=== PATIENT | male | born 1955 | race Caucasian/White ===

== ENCOUNTER 2017-06-12 12:17 | Emergency (ER) | payer OTHER ==
[~2017-06-12] VITALS: Ht 185.4 cm; Wt 103.2 kg
[~2017-06-12 12:17] MED LIST: ASPI-621 PO; ATOR-2 PO; ATOR40TA78 PO; CLOP75TA52 PO; HYDR-3240 PO; INSU100C5 SQ-INSULIN; INSU100V8 SQ; LIRA0.6P SC; LIRA0.6P SQ; LISI-167 PO; MELO15TA24 PO; METF10002 PO; METO25TA35 PO; RANI300C PO; TICA90TA PO; VICTOZA; [UNRECOGNIZED DRUG - OTHER]
[2017-06-12] MEDS ORDERED: SODIUM CHLORIDE 0.9% 1,000ML IVBOLUS ONE (13:00)
[2017-06-12] MEDS ORDERED: SODIUM CHLORIDE FLUSH 10ML SYR IVF ONE (13:00)
[2017-06-12] MEDS ORDERED: ONDANSETRON 2MG/ML, 2ML IVPush ONE ×2 (13:00→17:00)
[2017-06-12] MEDS ORDERED: ONDANSETRON 2MG/ML, 2ML ONE (13:03)
[2017-06-12 13:44] LABS: HEMOGLOBIN 17.7 g/dL (13.7-18.0); WHITE BLOOD COUNT 10.1 x10^3/uL (3.4-10)
[2017-06-12 13:57] LABS: ASPARTATE AMINO TRANSFERASE 15 U/L (15-37); BLOOD UREA NITROGEN 22 mg/dL (7-18)
[2017-06-12 14:02] LABS: IS PT STATUS REG ER OR PRE ER? YES
[2017-06-12] MEDS ORDERED: OMNIPAQUE 350 MG/ML, 100ML BOTTLE ONE (15:23)
[2017-06-12 16:28] VITALS: BP 126/90
== END 2017-06-12 17:51 | disposition home or self-care (01) ==
LOC: ED 14:35
DX: E86.0 Dehydration (principal); R10.13 Epigastric pain; R63.0 Anorexia; E11.9 Type 2 diabetes mellitus without complications; I10 Essential (primary) hypertension
CPT/HCPCS: 36415; 74177; 80053; 83690; 84484; 85025; 93005; 96361; 96374; 96376; 99285; J2405; J7030; Q9967

== ENCOUNTER 2018-07-12 20:51 | Observation (INO) | payer OTHER ==
[~2018-07-12] VITALS: Ht 185.4 cm; Wt 111.4 kg
[~2018-07-12 20:51] MED LIST changes: -ASPI-621 PO; +ASPI81TA45 PO
[2018-07-12 21:22] LABS: BASOPHILS # (AUTO) 0.04 x10^3/uL (0-0.1); BASOPHILS % (AUTO) 1 % (0-1); EOSINOPHILS % (AUTO) 2 % (1-7); LYMPHOCYTES # (AUTO) 1.57 x10^3/uL (1-3.4); LYMPHOCYTES % (AUTO) 25 % (22-44); MD NO; MEAN CORPUSCULAR HEMOGLOBIN 29.1 pg (27.5-34.5); MEAN CORPUSCULAR VOLUME 85.5 fL (81-97); MEAN PLATELET VOLUME 7.8 fL (7.4-10.4); MONOCYTES # (AUTO) 0.72 x10^3/uL (0.2-0.8); MONOCYTES % (AUTO) 12 % (2-9); NEUTROPHILS # (AUTO) 3.74 x10^3/uL (1.8-6.8); NEUTROPHILS % (AUTO) 61 % (42-75); PLATELET COUNT 231 x10^3/uL (130-400); RED BLOOD COUNT 5.26 x10^6/uL (4.38-5.82); RED CELL DISTRIBUTION WIDTH 15.2 % (9.4-14.8)
[2018-07-12] MEDS ORDERED: SODIUM CHLORIDE FLUSH 10ML SYR IVF ONE (21:30)
[2018-07-12] MEDS ORDERED: MORPHINE SULFATE 4 MG/ML, 1ML IVPush PRN (21:30)
[2018-07-12] MEDS ORDERED: MORPHINE SULFATE 4 MG/ML, 1ML ONE (21:31)
[2018-07-12 21:34] LABS: ALANINE AMINOTRANSFERASE 19 U/L (12-78); ALBUMIN 3.4 g/dL (3.4-5.0); ANION GAP 6 mmol/L (5-15); CALCIUM 8.7 mg/dL (8.5-10.1); CHLORIDE 110 mmol/L (98-107); CREATININE 1.12 mg/dL (0.7-1.3)
[2018-07-12 21:38] LABS: ALKALINE PHOSPHATASE 89 U/L (45-117); TOTAL PROTEIN 6.7 g/dL (6.4-8.2); TROPONIN I < 0.015 ng/mL (0.000-0.045)
[2018-07-12 21:43] LABS: BILIRUBIN,TOTAL 0.4 mg/dL (0.2-1.0)
[2018-07-12] MEDS ORDERED: OMEP40CA6 PO (22:19)
[2018-07-12] MEDS ORDERED: INSU100I13 SQ (22:19)
--- NOTE | 2018-07-12 22:43 | NUR ---
ADMITTING MD AT BEDSIDE.
[2018-07-12] MEDS ORDERED: SODIUM CHLORIDE 0.9% 1,000 ML IV SCH (22:54)
[2018-07-12] MEDS: INSULIN GLARGINE 100 UNITS/ML, PEN SQ-INSULIN SCH (23:00)
[2018-07-12] MEDS ORDERED: ACETAMINOPHEN 325 MG TABLET PO PRN (23:00)
[2018-07-12] MEDS ORDERED: morphine SULFATE 10 MG/ML, 1ML IVPush PRN (23:00)
[2018-07-12] MEDS ORDERED: ONDANSETRON ODT 4 MG PO PRN (23:00)
[2018-07-12] MEDS ORDERED: NITROGLYCERIN 0.4 MG BOTTLE (25 TABS) SL PRN (23:00)
[2018-07-12] MEDS ORDERED: ONDANSETRON 2MG/ML, 2ML IVPush PRN (23:00)
[2018-07-12] MEDS ORDERED: hydrALAzine 20 MG/ML, 1ML IVPush PRN (23:00)
[2018-07-12] MEDS ORDERED: ATORVASTATIN 40 MG TABLET PO SCH (23:00)
[2018-07-12 23:45] VITALS: BP 127/89
[2018-07-13 03:04] VITALS: BP 106/66
[2018-07-13 03:22] LABS: TROPONIN I < 0.015 ng/mL (0.000-0.045)
[2018-07-13] MEDS ORDERED: METOPROLOL TARTRATE 25 MG TABLET PO SCH (06:00)
[2018-07-13 06:48] LABS: TROPONIN I < 0.015 ng/mL (0.000-0.045)
[2018-07-13 07:55] VITALS: BP 112/66
[2018-07-13] MEDS ORDERED: OMEPRAZOLE 20 MG CAPSULE.DR PO SCH (09:00)
[2018-07-13] MEDS ORDERED: CLOPIDOGREL 75 MG TABLET PO SCH (09:00)
[2018-07-13] MEDS ORDERED: ASPIRIN 81 MG TABLET EC PO SCH (09:00)
[2018-07-13] MEDS ORDERED: LISINOPRIL 10 MG TABLET PO SCH (09:00)
[2018-07-13] MEDS ORDERED: REGADENOSON 0.4 MG/5 ML SYRINGE ONE (11:10)
[2018-07-13] MEDS: INSULIN GLARGINE 100 UNITS/ML, PEN SQ-INSULIN SCH (13:40)
[2018-07-13 14:11] VITALS: BP 115/75
== END 2018-07-13 16:00 | disposition home or self-care (01) ==
LOC: ED 22:24 → EDIP 22:54 → INTOOBSV 22:54 → SUATTDRO 22:54 → 5SO 23:15
PROVIDERS: ADMIT Hospitalist; ATTEND Hospitalist
DX: R07.89 Other chest pain (principal); E11.9 Type 2 diabetes mellitus without complications; E78.5 Hyperlipidemia, unspecified; I10 Essential (primary) hypertension; E66.9 Obesity, unspecified; I25.10 Atherosclerotic heart disease of native coronary artery without angina pectoris; I25.2 Old myocardial infarction; Z95.5 Presence of coronary angioplasty implant and graft
CPT/HCPCS: 36415; 71045; 78452; 80053; 82962; 84484; 85025; 93005; 93017; 96372; 96374; 99284; A9502; C9898; G0378; J1815; J2785; J7030